=== PATIENT | male | born 1935 | race Caucasian/White ===

== ENCOUNTER 2018-01-07 15:37 | Inpatient (IN) | payer MEDICARE ==
[2018-01-07 16:16] LABS: #Lymphocytes 0.5 thou/uL (1.20-3.40); #Monocytes 0.5 thou/uL (0.11-0.59); #Neutrophils 9.6 thou/uL (1.40-6.50); %Basophils 0.2 % (0.0-1.0); %Eosinophils 0.1 % (0.0-10.0); %Lymphocytes 4.6 % (21.0-51.0); %Neutrophils 90.1 % (42.0-75.0); Mean Corpuscular Hemoglobin 30.5 pg (27.0-31.0); Mean Corpuscular Volume 92.5 fL (78.0-98.0); Mean Platelet Volume 7.6 fL (7.4-10.4); Platelet Count 143 thou/uL (130-400); RBC Distribution Width 12.4 % (11.5-14.5); Red Blood Cell (RBC) Count 4.27 mill/uL (4.70-6.10); White Blood Cell (WBC) Count 10.7 thou/uL (4.8-10.8)
[2018-01-07 16:23] LABS: INR-International Normal Ratio 2.8; PTT 32.9 SEC (22.9-36.1); Prothrombin Time 29.4 SEC (12.0-14.7)
--- NOTE | 2018-01-07 16:38 | RAD ---
PORTABLE AP CHEST X-RAY 01/07/18 HISTORY: Patient fell today while trying to hang a rope. Patient was on the ground for hours. COMPARISON: None available. FINDINGS: The cardiac silhouette and pulmonary vasculature are within normal limits. There is eventration of a portion of the right hemidiaphragm. The lungs are clear. Degenerative changes are seen in the spine. Vascular calcification seen in the thoracic aorta. IMPRESSION: No acute cardiopulmonary process. POS: [facility]
[2018-01-07 16:39] LABS: ALT (SGPT) 16 U/L (8-55); AST (SGOT) 28 U/L (5-34); Albumin 4.1 g/dL (3.4-4.8); Alkaline Phosphatase 49 U/L (40-150); Anion Gap 15 mmol/L (10-20); BUN (Urea Nitrogen) 14 mg/dL (8.4-25.7); CK (CPK) 788 U/L (30-200); Calc. Creatinine Clearance 0 mL/min (70-130); Calcium 8.7 mg/dL (7.8-10.44); Carbon Dioxide 22 mmol/L (23-31); Chloride 107 mmol/L (98-107); Estimated GFR-MDRD 69; Globulin 2.8 g/dL (2.4-3.5); Glucose 124 mg/dL (83-110); Potassium 3.6 mmol/L (3.5-5.1); Protein, Total 6.9 g/dL (5.8-8.1); Sodium 140 mmol/L (136-145)
--- NOTE | 2018-01-07 16:42 | RAD ---
TWO VIEWS LEFT FEMUR: 01/07/18 HISTORY: Patient fell while trying to hang a rope. Left hip pain. FINDINGS: Comparison made with AP view of the pelvis which includes the AP view of the proximal left hip. The upper portion of the femur is obscured on the AP projection. Noted on the view of the pelvis, the re is a comminuted intertrochanteric left hip fracture. No additional fractures seen. There is no dis location seen. Vascular calcifications are seen in the femoral and popliteal as well as visualized ti bioperoneal vessels. No joint space narrowing is seen at the knee. IMPRESSION: Comminuted mildly and displaced left intertrochanteric hip fracture. POS: [facility]
--- NOTE | 2018-01-07 16:49 | RAD ---
AP VIEW PELVIS: 01/07/18 HISTORY: Injury after a fall. Left hip pain. FINDINGS: There is a comminuted intertrochanteric left hip fracture. The distal fracture fragment is slightly d isplaced medially with respect to the proximal fracture fragment by 1.8 cm. There is also mild displa cement of the lesser trochanter fracture fragment. There is mild apex lateral angulation of fracture fragments. No definite additional fracture is seen and there is no dislocation. Degenerative changes are seen in the lower lumbar spine. Vascular calcifications overlie the pelvis. IMPRESSION: Comminuted and mildly displaced and left intertrochanteric hip fracture. POS: [facility]
[2018-01-07] MEDS ORDERED: traMADol HCl 50 MG TAB PO PRN (17:22)
[2018-01-07] MEDS ORDERED: Dextrose 50% Abboject 50 ML SYRINGE SLOW IVP PRN (17:23)
[2018-01-07] MEDS ORDERED: Dextrose 5% in Water 1,000 ML IV PRN (17:23)
[2018-01-07] MEDS ORDERED: Labetalol HCl 100 MG/20 ML VIAL ONE ×2 (17:41→17:42)
[2018-01-07] MEDS ORDERED: Phytonadione 5 MG in Sodium Chloride 0.9% 50 ML IVPB SCH (17:45)
[2018-01-07] MEDS ORDERED: hydrALAZINE 20 MG/ML VIAL SLOW IVP PRN (18:01)
[2018-01-07 18:35] LABS: CKMB 4.5 ng/mL (0-6.6); Troponin I Less than 0.010 ng/mL (< 0.028)
[2018-01-07] MEDS: Acetaminophen 1,000 MG in Premix Bag 1 BAG IVPB SCH (20:17)
[2018-01-07] MEDS: traMADol HCl 50 MG TAB PO SCH (20:17)
[2018-01-07] MEDS: Ketorolac Tromethamine 30 MG/ML VIAL IVP SCH (20:18)
[2018-01-07 20:25] VITALS: BMI 30.4
--- NOTE | 2018-01-07 21:03 | HP ---
DATE OF ADMISSION: 01/07/2018 ATTENDING PHYSICIAN: Dr. Torres. TRAUMA ACTIVATION: Level 2. HISTORY OF PRESENT ILLNESS: This is an 82-year-old male who presented to [facility] v ia EMS status post fall. He was trauma activation secondary to left thigh deformity and suspected lo ng bone fracture. Per patient, he was working in the [employer] trying to offload a piece of equipment u sing a rope, the rope broke and the patient fell landing on his left hip. The patient denies head tr auma or loss of consciousness. He was evaluated in the emergency room and found to have a left subtr ochanteric hip fracture. Of note, the patient does have a history of atrial fibrillation and is on C oumadin. Upon my evaluation, he has a chief complaint of left hip and thigh pain. Orthopedic Surger y was notified and Trauma Services was asked to admit. Additionally, patient stated that he was down for up to 4 hours while attempting to obtain help. ALLERGIES: None. HOME MEDICATIONS: Coumadin, Crestor, metoprolol dose is unknown. PAST MEDICAL HISTORY: Atrial fibrillation and hypertension. PAST SURGICAL HISTORY: Left knee surgery, right arm surgery. SOCIAL HISTORY: Patient lives alone. He currently works as a noonan. He denies alcohol, tobacco or illicit drug use. FAMILY HISTORY: Noncontributory. REVIEW OF SYSTEMS: A 10-point review of systems was obtained and is negative except as indicated in the HPI. PHYSICAL EXAMINATION: VITAL SIGNS: On evaluation, blood pressure 158/111, heart rate 88, respirations 16, O2 sat 98% on ro om air. GENERAL: Elderly appearing male in no acute distress, resting in bed. HEAD: Normocephalic, atraumatic. EYES: Pupils are PERRL. Extraocular movements are intact. NECK: Supple. Trachea is midline. There is no midline tenderness to palpation. CHEST/PULMONARY: Atraumatic and nontender to palpation. Normal work of breathing, symmetric rise. LUNGS: Clear to auscultation bilaterally. CARDIOVASCULAR: Irregularly irregular. No obvious murmurs, rubs or gallops. GASTROINTESTINAL: Atraumatic, soft, nontender, nondistended. Bowel sounds are positive. BACK: Exam is reported as being within normal limits. MUSCULOSKELETAL: Bilateral upper extremities within normal limits. Right lower extremity is within normal limits for patient. Left lower extremity width is shortened and externally rotated. He was i nitially placed in a traction splint by EMS, but that has since been removed by Dr. Valencia. NEUROLOGIC: GCS is 15. No focal deficit is noted. LABORATORY DATA: WBC 10.7, hemoglobin 13.0, hematocrit 39.5 and platelet count 143. INR is 2.8, PT 29.4, aPTT is 32.9. Sodium 140, potassium 3.6, chloride 107, carbon dioxide 22, BUN 14, creatinine 1 .03, glucose 124, calcium 8.7. AST and ALT within normal limits. CK 788. Troponin less than 0.010. IMAGING DATA: EKG with atrial fibrillation, rate controlled and evidence of QTC prolongation. Chest x-ray was without acute cardiopulmonary process. X-ray of the femur showed a left subtrochanteric h ip fracture. X-ray of the pelvis demonstrated the same. ASSESSMENT: 1. Status post mechanical fall. 2. Acute traumatic pain. 3. Left hip fracture. 4. Atrial fibrillation on chronic anticoagulation. 5. Hypertension. PLAN: Administer vitamin K IV in the ER now. Recheck INR in a.m. If INR is greater than 1.6, we wi ll administer FFP at that time. Hospital medicine consult for medical clearance. Perioperative anal gesia with p.o. and IV analgesics. Postoperative PT and OT. The patient should be n.p.o. after midn ight. Gentle IV fluid hydration. DVT and gastritis prophylaxis once appropriate. Plan for admissio n was discussed with the patient and family at bedside. All questions were answered at the time of t his dictation. He is a FULL CODE. The patient has been discussed with trauma attending.
[2018-01-07] MEDS: Senokot S 8.6-50 MG TAB PO SCH (21:50)
[2018-01-07] MEDS: Sodium Chloride 0.9% 1,000 ML IV SCH (21:51)
[2018-01-08] MEDS: traMADol HCl 50 MG TAB PO SCH ×4 (00:22→17:14)
[2018-01-08] MEDS: Ketorolac Tromethamine 30 MG/ML VIAL IVP SCH ×4 (00:26→18:00)
[2018-01-08] MEDS: Acetaminophen 1,000 MG in Premix Bag 1 BAG IVPB SCH ×4 (00:26→18:00)
[2018-01-08 05:45] LABS: INR-International Normal Ratio 1.7; PTT 32.5 SEC (22.9-36.1); Prothrombin Time 19.6 SEC (12.0-14.7)
[2018-01-08 05:59] LABS: Anion Gap 11 mmol/L (10-20); BUN (Urea Nitrogen) 10 mg/dL (8.4-25.7); CK (CPK) 785 U/L (30-200); Calc. Creatinine Clearance 85 mL/min (70-130); Calcium 7.9 mg/dL (7.8-10.44); Carbon Dioxide 23 mmol/L (23-31); Chloride 107 mmol/L (98-107); Estimated GFR-MDRD 86; Glucose 99 mg/dL (83-110); Magnesium 1.7 mg/dL (1.6-2.6); Potassium 3.4 mmol/L (3.5-5.1); Sodium 138 mmol/L (136-145)
[2018-01-08 06:07] LABS: #Lymphocytes 0.7 thou/uL (1.20-3.40); #Monocytes 0.6 thou/uL (0.11-0.59); #Neutrophils 5.2 thou/uL (1.40-6.50); %Basophils 0.1 % (0.0-1.0); %Eosinophils 0.4 % (0.0-10.0); %Lymphocytes 10.8 % (21.0-51.0); %Neutrophils 79.8 % (42.0-75.0); Hemoglobin 10.9 g/dL (14.0-18.0); Mean Corpuscular HGB CONC 33.4 g/dL (32.0-36.0); Mean Corpuscular Hemoglobin 30.9 pg (27.0-31.0); Mean Corpuscular Volume 92.5 fL (78.0-98.0); Mean Platelet Volume 7.5 fL (7.4-10.4); Platelet Count 106 thou/uL (130-400); RBC Distribution Width 12.3 % (11.5-14.5); Red Blood Cell (RBC) Count 3.53 mill/uL (4.70-6.10); White Blood Cell (WBC) Count 6.6 thou/uL (4.8-10.8)
--- NOTE | 2018-01-08 07:30 | CON ---
DATE OF CONSULTATION: 01/08/2018 Consultation for medical management and medical clearance for surgery. CHIEF COMPLAINT: Fall. HISTORY OF PRESENT ILLNESS: This is an 82-year-old male with past medical history of hypertension, a trial fibrillation, hyperlipidemia presenting to our hospital after a fall. Per patient, he fell natali kward after pulling a rope. The patient states that he injured himself, fell on his hip. Per the pa tient, this was a mechanical fall. The patient is currently in pain and nothing seemed to help with the pain when the injury happened. Currently, the patient states that the pain has been a little bet ter due to pain medication that he is taking. REVIEW OF SYSTEMS: Positive for pain in the left hip, otherwise as documented in the HPI. All other systems are reviewed and are negative. PAST MEDICAL HISTORY: Atrial fibrillation, hyperlipidemia, hypertension. PAST SURGICAL HISTORY: Left knee and right arm surgeries. PSYCHIATRIC HISTORY: No psych history. SOCIAL HISTORY: Patient denies alcohol use, denies any drug use. Denies any smoking history. ALLERGIES: No known drug allergies. CURRENT MEDICATIONS: Patient takes Coumadin 5 mg and Metoprolol. PHYSICAL EXAMINATION: VITAL SIGNS: Blood pressure is 205/111, pulse 88, respiratory rate of 22, oxygen saturation is 96% o n room air. On admission, the patient's blood pressure dropped to 151/67, pulse 69, respiratory rate of 17, O2 sat of 98% on room air. GENERAL APPEARANCE: The patient appears stated age. The patient is seen lying in bed comfortably. He is not in acute distress. Patient is speaking in full sentences. HEENT: Normocephalic, atraumatic. Pupils are equally round and reactive to light. Extraocular move ments are intact. No scleral icterus. NECK: No JVD. Trachea is midline. No tracheal deviation. LUNGS: Clear to auscultation bilaterally. No wheezing, no rales, no rhonchi is appreciated. CARDIOVASCULAR: Patient has a positive S1, S2, irregularly irregular heart rate. There is a systoli c murmur appreciated. No gallops. ABDOMEN: The patient has positive bowel sounds in all quadrants, no distention, no tenderness, no ri gidity. EXTREMITIES: The patient has slight tenderness to palpation at the left lower extremity. The patien t has reduced range of motion at the left lower extremity. Right lower extremity, the patient is abl e to move that extremity; however, the patient do have slight edema noted at the left lower extremity . Upper extremity, 5/5 upper extremity strength. Good radial pulses bilaterally. NEUROLOGIC: The patient has good sensation intact at the left lower extremity. Good pulses and the patient is able to wiggle toes bilaterally. Cranial nerves II through XII grossly intact. SKIN: Warm, dry, and intact. PSYCHIATRIC: Alert, oriented x3, normal affect. EKG: Atrial fibrillation noted with a rate of 86. ED COURSE: The patient was given labetalol 10 mg, vitamin K 5 mg, normal saline 1 liter. LABORATORY DATA: The patient's white count was 10.7, hemoglobin 13.0, hematocrit 39.5, PT 29.4, INR is 2.8 and PTT is 32.9. Sodium 140, potassium 3.6, chloride 107, carbon dioxide 22, anion gap 15, cr eatinine is 1.03, glucose 124, calcium is 8.7. Creatine kinase is 788. IMAGING: Femur x-ray showed comminuted mildly and displaced left intertrochanteric hip fra cture. Chest x-ray showed no acute cardiopulmonary process. Pelvic x-ray showed comminuted and mild ly displaced and left intertrochanteric hip fracture. ASSESSMENT AND PLAN: This is an 82-year-old male status post mechanical fall. The patient is now be ing admitted for hip fracture that needs to be operated on. At this point, we have been consulted to medically optimize the patient for surgery. Patient's INR at this point is 2.8. My recommendation is that the patient can be transfused 1 FFP if INR is greater than 1.6. We have documented this in t he patient's chart and we have spoken to nurse regarding this. 1. Hypertension. The patient's blood pressure at this time is 152/82, heart rate is 63, temperature of 98.6. This is the fact that the patient takes metoprolol and patient's blood pressure is optimiz ed at this time. We will continue patient on metoprolol. Also, the patient is medically managed and does not have any extensive cardiac history for us to get Cardiology. We will at this time get car diologist to evaluate the patient's heart since the patient has a history of atrial fibrillation. Ho pefully, laundry operator finishing can be able to clear the patient and the patient can be able to undergo surgery . 2. Deep venous thrombosis and gastrointestinal prophylaxis.
[2018-01-08] MEDS ORDERED: Metoprolol Tartrate 50 MG TAB PO SCH ×2 (08:00→21:00)
[2018-01-08] MEDS ORDERED: Magnesium Sulfate 3 GM, IV Admixture Fee-Chemo 1 UNITS in Sodium Chloride 0.9% 100 ML IVPB SCH (08:45)
[2018-01-08] MEDS: Potassium Chloride 20 MEQ in Premix Bag 1 BAG IVPB SCH ×2 (09:37→11:40)
[2018-01-08] MEDS: Polyethylene Glycol 3350 17 GM Packet PO SCH (09:38)
[2018-01-08] MEDS: Senokot S 8.6-50 MG TAB PO SCH ×2 (09:38→21:53)
[2018-01-08] MEDS: Sodium Chloride 0.9% 1,000 ML IV SCH ×2 (09:39→21:53)
--- NOTE | 2018-01-08 12:33 | CON ---
DATE OF CONSULTATION: 01/07/2018 CHIEF COMPLAINT: Left hip pain. HISTORY OF PRESENT ILLNESS: Mr. Trevizo is an 82-year-old male who was working on his car with a wench it popped and then sent him fall and he fell onto his left hip. The patient was down for about 3-4 hours. He crawled until he was found. He was then brought in. The patient states that he walks about 1-2 miles a day. Never had shortness of breath or chest pain. His pain is currently 2/10. He is resting comfortably in bed with his sister and daughter at bedside. PAST MEDICAL HISTORY: Atrial fibrillation, hypertension. No history of coronary artery disease per report. PAST SURGICAL HISTORY: 1. Right arm ORIF. 2. Left knee laceration with surgical repair. MEDICATIONS: Coumadin, Crestor, and metoprolol. ALLERGIES: No known drug allergies. SOCIAL HISTORY: Nondrinker, nonsmoker, no drug use. Currently, the patient is retired, lives in [facility]. REVIEW OF SYSTEMS: Noncontributory. PHYSICAL EXAMINATION: VITAL SIGNS: 164/110, 94, 27, 98.6, pain 2/10, and saturation 96%. GENERAL: Alert and oriented male in no apparent distress, resting comfortably in bed. EXTREMITIES: Left lower extremity, had traction splint in place, which was removed. The patient has no open wounds. He is neurovascularly intact distally , 2+ DP and PT pulses. He has got a smiley face incision over his distal patella. The patient has pain with internal or external rotation of his left hip. PELVIS: Stable to AP and lateral compression. LABORATORY DATA AND X-RAY FINDINGS: H&H is 13 and 39, platelets 143, INR was 2.8. Creatinine 1.03, glucose 124. The patient's x-ray showed a reverse obliquity left intertrochanteric and subtrochanteric femur fracture. IMPRESSION: 1. Left subtrochanteric femur fracture. 2. Atrial fibrillation. 3. Hypertension. 4. Hypercholesterolemia. ASSESSMENT AND PLAN: The patient will be made n.p.o. His INR will be corrected by Trauma Surgery. The patient will be planned for intramedullary nailing along TNF-a of his left hip. Plan to give him TXA 1 gram, Ancef 2 grams preoperatively. The patient's family understands the risks and benefits of the surgery to include pain, scar, bleeding, infection, damage to vital structures, decreased range of motion or strength, nonunion, malunion, loss of life or limb. I discussed with patient the mortality and significant risk of this event. He understands all this. We will plan on performing surgery tomorrow. [facility]
[2018-01-08 15:20] LABS: INR-International Normal Ratio 1.4; Prothrombin Time 17.3 SEC (12.0-14.7)
[2018-01-08] MEDS ORDERED: Lidocaine 1% PF 5 ML VIAL ONE (16:10)
[2018-01-08] MEDS ORDERED: PROPOFOL 200 MG/20 ML VIAL ONE (16:10)
[2018-01-08] MEDS ORDERED: Ondansetron HCl/PF 4 MG/2 ML Vial ONE (16:10)
--- NOTE | 2018-01-08 17:02 | PDOC.PN ---
- Subjective Encounter Start Date: 01/08/18 Encounter Start Time: 08:00 Pt seen for followup re: hypertension. Denies chest pain, shortness of breath, fevers or chills. - Objective Resuscitation Status: Resuscitation Status FULL:Full Resuscitation MAR Reviewed: Yes Vital Signs & Weight: Vital Signs (12 hours) Temp Pulse Pulse Resp BP BP Pulse Ox 01/08/18 11:59 98.2 F 55 L 16 135/66 94 L 01/08/18 11:33 97.6 F 59 L 22 H 135/67 94 L 01/08/18 09:46 98.5 F 70 16 134/83 95 01/08/18 09:31 98 F 66 16 151/87 H 95 01/08/18 07:50 93 L 01/08/18 07:46 98.0 F 75 16 148/78 H 93 L Weight Weight 194 lb 7 oz I&O: 01/07/18 01/08/18 01/09/18 06:59 06:59 06:59 Intake Total 1000 1470 Output Total 675 350 Balance 325 1120 Result Diagrams: 01/09/18 03:29 01/09/18 03:29 Additional Labs: Labs reviewed by me Phys Exam - Physical Examination Obese HEENT: moist MMs Neck: supple Respiratory: clear to auscultation bilateral Cardiovascular: irregular Gastrointestinal: soft Neurological: moves all 4 limbs Psychiatric: normal affect Dx/Plan (1) HTN (hypertension) Code(s): I10 - ESSENTIAL (PRIMARY) HYPERTENSION Status: Chronic Comment: continue metoprolol. Monitor vital signs, titrate antihypertensives as needed. (2) Dyslipidemia Code(s): E78.5 - HYPERLIPIDEMIA, UNSPECIFIED Status: Chronic Comment: continue statin (3) Afib Code(s): I48.91 - UNSPECIFIED ATRIAL FIBRILLATION Status: Chronic Comment: Pt receiving FFPs to reverse warfarin, received Vit K earlier - Plan * . DVT prophylaxis and pain management per primary service Review of Systems - Review of Systems Respiratory: negative: Cough, Dry, Shortness of Breath, Hemoptysis, SOB with Excertion, Pleuritic Pain, Sputum, Wheezing Cardiovascular: negative: chest pain, palpitations, orthopnea, paroxysmal nocturnal dyspnea, edema, light headedness Musculoskeletal: Other (L hip pain) - Medications/Allergies Allergies/Adverse Reactions: Allergies Allergy/AdvReac Type Severity Reaction Status Date / Time No Known Allergies Allergy Unverified 01/07/18 17:34 Medications: Current Medications Atorvastatin Calcium (Lipitor) 10 mg PO HS [facility] Dextrose/Water (Dextrose 50%) 25 gm SLOW IVP PRN PRN PRN Reason: Hypoglycemia Glucagon (Glucagon) 1 mg IM PRN PRN PRN Reason: Hypoglycemia Hydralazine HCl (Apresoline) 10 mg SLOW IVP Q4H PRN PRN Reason: SBP > 170 or DBP > 100 Acetaminophen 1,000 mg/ Device 100 mls @ 400 mls/hr IVPB Q6HR [facility] Stop: 01/08/18 18:01 Last Admin: 01/08/18 11:41 Dose: 100 mls Dextrose/Water (D5w) 1,000 mls @ 0 mls/hr IV .Q0M PRN PRN Reason: Hypoglycemia Sodium Chloride (Normal Saline 0.9%) 1,000 mls @ 100 mls/hr IV .Q10H [facility] Last Admin: 01/08/18 09:39 Dose: 1,000 mls Ketorolac Tromethamine (Toradol) 15 mg IVP Q6HR [facility] Stop: 01/12/18 18:01 Last Admin: 01/08/18 11:42 Dose: 15 mg Metoprolol Succinate (Toprol Xl) 50 mg PO HS [facility] Morphine Sulfate (Morphine) 2 mg IVP Q4H PRN PRN Reason: severe breakthrough pain Polyethylene Glycol (Miralax) 17 gm PO DAILY [facility] Last Admin: 01/08/18 09:38 Dose: Not Given Senna/Docusate Sodium (Senokot S) 2 tab PO BID [facility] Last Admin: 01/08/18 09:38 Dose: Not Given Sodium Chloride (Flush - Normal Saline) 10 ml IVF PRN PRN PRN Reason: Saline Flush Tramadol HCl (Ultram) 50 mg PO Q6H [facility] Last Admin: 01/08/18 11:42 Dose: 50 mg Tramadol HCl (Ultram) 50 mg PO Q6H PRN PRN Reason: Breakthrough Pain Last Admin: 01/07/18 21:50 Dose: 50 mg
[2018-01-08] MEDS ORDERED: Sodium Chloride 0.9% 100 ML ONE (17:37)
[2018-01-08] MEDS ORDERED: CEFAZOLIN/Water 2 GM/20 ML SYRINGE ONE (17:37)
[2018-01-08] MEDS ORDERED: Fentanyl 100 MCG/2 ML VIAL ONE ×4 (17:53→19:40)
--- NOTE | 2018-01-08 18:06 | PRG ---
DATE OF SERVICE: 01/08/2018 SUBJECTIVE: This is an 82-year-old male status post mechanical fall with resultant left femur fractu re. There were no acute overnight events. The patient has been seen and evaluated by Hospital Medic ine who recommends a cardiac evaluation prior to surgery. Cardiology has been notified. Upon my ava luation this morning, the patient vocalized no complaint. He has also been seen and evaluated by Dr. Torres. OBJECTIVE: VITAL SIGNS: Temperature 98.5, respirations 16, O2 sat 95% on room air, blood pressure 134/83, pulse is 70. GENERAL: Elderly appearing male in no acute distress, resting in bed. PULMONARY: Normal work of breathing. Symmetric rise. CARDIOVASCULAR: Regular rate and rhythm. GASTROINTESTINAL: Abdomen is soft, nontender, nondistended. MUSCULOSKELETAL: Moves all extremities x4. Left lower extremity range of motion limited secondary t o pain. He is neurovascularly intact at the site of injury. NEUROLOGIC: No focal deficit noted. LABORATORY DATA: WBC 6.6, hemoglobin 10.9, hematocrit 32.6, platelet count 106. INR 1.7. Sodium 13 8, potassium 3.4, chloride 107, carbon dioxide 23, BUN 10, creatinine 0.6, glucose 99. CK 785. Echo cardiogram report EF 50%-55%, mild RVE, moderate biatrial enlargement, mild MR, moderate TR. ASSESSMENT: 1. Status post mechanical fall. 2. Left femur fracture. 3. Acute traumatic pain. 4. History of atrial fibrillation. 5. History of hypertension. PLAN: Appreciate Hospital Medicine input. Perioperative pain management as ordered. We will transi tion patient p.o. analgesics once postoperative. Follow up Cardiology recommendations, although I an ticipate there will be no issues with cardiac clearance for surgery later this afternoon. A.m. labs. Postoperative PT and OT. Plan of care was discussed with the patient and family at bedside. All q uestions were answered at the time of this dictation. Patient has been discussed with trauma attendpaul paulino.
[2018-01-08] MEDS ORDERED: Rocuronium Bromide 50 MG/5 ML VIAL ONE (19:21)
--- NOTE | 2018-01-08 20:07 | CON ---
DATE OF CONSULTATION: 01/08/2018 REASON FOR CONSULTATION: Preop clearance and atrial fibrillation. HISTORY OF PRESENT ILLNESS: Mr. Trevizo is an 82-year-old gentleman, who has been seen and evaluated by Dr. Hu Mariee at [facility]. He has no previous history of underlying coronary artery di sease. He states he has been on anticoagulation therapy for atrial fibrillation. He recently fell. Mr. Trevizo is very active. He was outside and broke his leg. He denies chest pain, pressure, shortness of breath or other associated symptoms. He does appear to have appropriate METS. PAST MEDICAL HISTORY: Chronic atrial fibrillation, on anticoagulation therapy; hyperlipidemia; hyper tension. MEDICATIONS: Coumadin and metoprolol. ALLERGIES: None. SOCIAL HISTORY: No current tobacco or alcohol use. REVIEW OF SYSTEMS: Ten-point review of systems is reviewed and as above, otherwise negative. PHYSICAL EXAMINATION: GENERAL: Patient is a pleasant male who is in no acute distress. The patient appears his stated age . VITAL SIGNS: Blood pressure 135/67, pulse ____, temperature 97.6. NEUROLOGIC: The patient is alert and oriented times 3 with no focal neurologic deficits. HEENT: Sclerae without icterus. Mouth has moist mucous membranes with normal pallor. NECK: No JVD. Carotid upstroke brisk. No bruits bilaterally. LUNGS: Clear to auscultation with unlabored respirations. BACK: No scoliosis or kyphosis. CARDIAC: Irregularly irregular. ABDOMEN: Soft, nontender, nondistended. No peritoneal signs present. No hepatosplenomegaly. No ab normal striae. EXTREMITIES: 2+ femoral and 2+ dorsalis pedis pulses. No cyanosis, clubbing, or edema. SKIN: No gross abnormalities. PERTINENT LABORATORY DATA: Hemoglobin 10.9. Creatinine 0.86. Echo Doppler shows normal LVEF. IMPRESSION: 1. Preop clearance. 2. Chronic atrial fibrillation. RECOMMENDATIONS: From a CV standpoint, Mr. Trevizo appears to be a reasonable risk for surgery. He is considered low risk with no current symptoms and appropriate METS. His LVEF is normal. Continue bet a roderick therapy. Stop Coumadin and restart when okay with Surgery. Otherwise, I have no recommend ations.
[2018-01-08] MEDS: Atorvastatin Calcium 10 MG TAB PO SCH (21:53)
--- NOTE | 2018-01-08 23:29 | RAD ---
LEFT FEMUR TWO VIEWS: HISTORY: Intraoperative films. FINDINGS: A compression screw and long-stem intramedullary christina stabilize a subtrochanteric fracture of the femo ral shaft, in good position. IMPRESSION: Open reduction and internal fixation of femur fracture. POS: [facility]
[2018-01-09] MEDS: CEFAZOLIN/Water 2 G/20 ML 2 GM in Premix Bag 1 BAG SLOW IVP SCH ×2 (00:19→09:01)
[2018-01-09] MEDS: Ketorolac Tromethamine 30 MG/ML VIAL IVP SCH ×4 (00:21→18:47)
[2018-01-09] MEDS: traMADol HCl 50 MG TAB PO SCH ×4 (00:21→18:47)
--- NOTE | 2018-01-09 03:28 | OP ---
PREOPERATIVE DIAGNOSIS: Left intertrochanteric-subtrochanteric reverse obliquity fracture. POSTOPERATIVE DIAGNOSIS: Left intertrochanteric-subtrochanteric reverse obliquity fracture. PROCEDURE PERFORMED: Intramedullary nailing of left intertrochanteric- subtrochanteric femur fracture. STAFF: Williams Valencia M.D. COLLEGE SPORTS ASSISTANT: Mykel King PA-C ANESTHESIA: Dr. Eastman, the patient received general endotracheal intubation. ESTIMATED BLOOD LOSS: 100 mL. TOURNIQUET TIME: None. IMPLANTS: Synthes TFNA nail, a 11 x 400 mm 130-degree titanium TFNA, a 105 mm titanium base screw, and a 5-mm locking screw. ANTIBIOTICS: 2 grams, TXA 1 gram. COMPLICATIONS: None. HISTORY OF PRESENT ILLNESS: Mr. Trevizo is an 82-year-old male who fell yesterday working on his winch. The patient had a history of AFib and had his INR corrected with vitamin K and FFP. The patient was planned today for a left hip TFNA, Ancef and TXA preoperatively. I discussed with the patient's family risks and benefits of surgery, pain, scar, bleeding, infection, damage to vital structures, nonunion, malunion, decreased range of motion and strength, need for further surgeries, failure of procedure, continued pain, despite surgical intervention. The patient understood the risks and benefits of procedure and he elected to proceed. PROCEDURE IN DETAIL: Timeout was performed designating the patient's left lower extremity as the operative site based on site, consents, and markings. After completion of timeout, the patient's left lower extremity was prepped and draped in sterile fashion. The patient was in fracture table with fracture reduced in traction he had a little bit of varus deformity and a little bit of apex anterior deformity probably from rotation of the reverse obliquity fracture. Therefore, I placed a stab incision superiorly and anterior to the fracture fragment. I used a thick sticker and a large Helen to push the fracture fragment into position, while we placed our initial guide pin, placed an oblique incision down through IT band down the abductors. We placed 1 pin, had to replace it little more anteriorly. I liked the overall alignment of the pin placement. We then used our opening reamer, passed our guidewire. We measured for a 400-mm nail. We reamed starting at 10 up to 12 and passed the 11 -mm nail with reducing the fragment. We then looked AP and lateral radiographs , placed our center-center screw in the head. We made sure we reduced and kept the reduction of the fragment and we drilled and passed across the head and passed a 105 mm screw, had good firm fixation and maintained it. There was maybe 3 mm step off anterior, which could be felt, but otherwise, the patient had good bony apposition and good alignment with the calcar. We tapped just gently to help to compress the bone down. We then placed a single screw in the top 1-2 mm to allow 400 mm of compression at the dynamic screw. We then washed all the wounds. We closed with 0, 2-0, and rob. The patient will be weightbearing as tolerated. He will be admitted back to Trauma, receive postoperative antibiotics for 24 hours. The patient may restart his Coumadin in the morning. He likely need discharge to senior living facility rehab. AGUSTO
[2018-01-09 04:16] LABS: #Lymphocytes 0.4 thou/uL (1.20-3.40); #Monocytes 0.2 thou/uL (0.11-0.59); %Eosinophils 0.3 % (0.0-10.0); %Lymphocytes 4.5 % (21.0-51.0); %Monocytes 2.8 % (0.0-10.0); %Neutrophils 92.4 % (42.0-75.0); Hemoglobin 9.6 g/dL (14.0-18.0); Mean Corpuscular HGB CONC 33.2 g/dL (32.0-36.0); Mean Corpuscular Volume 93.6 fL (78.0-98.0); Platelet Count 111 thou/uL (130-400); RBC Distribution Width 12.2 % (11.5-14.5); Red Blood Cell (RBC) Count 3.08 mill/uL (4.70-6.10); White Blood Cell (WBC) Count 8.6 thou/uL (4.8-10.8)
[2018-01-09 04:39] LABS: Anion Gap 14 mmol/L (10-20); BUN (Urea Nitrogen) 13 mg/dL (8.4-25.7); Calc. Creatinine Clearance 83 mL/min (70-130); Calcium 8.1 mg/dL (7.8-10.44); Carbon Dioxide 21 mmol/L (23-31); Chloride 105 mmol/L (98-107); Estimated GFR-MDRD 82; Glucose 123 mg/dL (83-110); Magnesium 2.2 mg/dL (1.6-2.6); Phosphorus 3.1 mg/dL (2.3-4.7); Potassium 4.1 mmol/L (3.5-5.1); Sodium 136 mmol/L (136-145)
[2018-01-09] MEDS: Sodium Chloride 0.9% 1,000 ML IV SCH ×3 (05:12→20:55)
--- NOTE | 2018-01-09 07:20 | PDOC.CTH ---
Cardiology Progress Note - Subjective Did well during surgery. NO current complaints - Objective Vital Signs Temp Pulse Resp BP Pulse Ox 01/09/18 04:00 97.9 F 61 18 113/68 92 L 01/09/18 00:26 97.8 F 71 18 101/64 92 L 01/08/18 21:05 98.4 F 79 18 137/86 94 L Weight 194 lb 7 oz 01/08/18 01/09/18 01/10/18 06:59 06:59 06:59 Intake Total 1000 2750 Output Total 675 775 Balance 325 1974 - Physical Examination General/Neuro: alert & oriented x3, NAD Neck: carotid US brisk, no JVD present Lungs: CTA, unlabored respirations Heart: other: (irr) Abdomen: no HSM, NT/ND, soft Extremities: + femoral B - Labs Result Diagrams: 01/09/18 03:29 01/09/18 03:29 Troponin/CKMB CK-MB (CK-2) 4.5 ng/mL (0-6.6) 01/07/18 16:09 Troponin I Less than 0.010 ng/mL (< 0.028) 01/07/18 16:09 - Assessment/Plan Afib Recent leg surgery Pt doing well Rate controlled Restart ACT when ok with ortho Recommend fu with lost charge card clerk at in 2-3 weeks after discharge
[2018-01-09] MEDS: Polyethylene Glycol 3350 17 GM Packet PO SCH (09:00)
[2018-01-09] MEDS: Senokot S 8.6-50 MG TAB PO SCH ×2 (09:00→20:42)
--- NOTE | 2018-01-09 12:07 | PDOC.PN ---
- Subjective Encounter Start Date: 01/09/18 Encounter Start Time: 08:20 Pt seen for followup re; hypertension. Denies chest pain, shortness fo breath, fevers or chills. - Objective Resuscitation Status: Resuscitation Status FULL:Full Resuscitation MAR Reviewed: Yes Vital Signs & Weight: Vital Signs (12 hours) Temp Pulse Pulse Pulse Resp BP BP 01/09/18 11:05 98.0 F 92 18 01/09/18 08:27 66 70 117/62 112/66 01/09/18 07:32 98.4 F 59 L 20 01/09/18 04:00 97.9 F 61 18 01/09/18 00:26 97.8 F 71 18 BP Pulse Ox 01/09/18 11:05 112/66 92 L 01/09/18 08:27 01/09/18 07:32 104/64 96 01/09/18 04:00 113/68 92 L 01/09/18 00:26 101/64 92 L Weight Weight 194 lb 7 oz I&O: 01/08/18 01/09/18 01/10/18 06:59 06:59 06:59 Intake Total 1000 2750 Output Total 675 775 Balance 325 1975 Result Diagrams: 01/09/18 03:29 01/09/18 03:29 Additional Labs: Labs reviewed by me Phys Exam - Physical Examination Constitutional: NAD HEENT: moist MMs Neck: supple Cardiovascular: irregular s/p L hip surgery Neurological: moves all 4 limbs Psychiatric: normal affect Dx/Plan (1) HTN (hypertension) Code(s): I10 - ESSENTIAL (PRIMARY) HYPERTENSION Status: Chronic Comment: controlled (2) Dyslipidemia Code(s): E78.5 - HYPERLIPIDEMIA, UNSPECIFIED Status: Chronic Comment: on statin (3) Afib Code(s): I48.91 - UNSPECIFIED ATRIAL FIBRILLATION Status: Chronic Comment: resumption of anticoagulation per primary team - Plan * . Review of Systems - Review of Systems Constitutional: negative: fever, chills, sweats, weakness, malaise Cardiovascular: negative: chest pain, palpitations, orthopnea, paroxysmal nocturnal dyspnea, edema, light headedness - Medications/Allergies Allergies/Adverse Reactions: Allergies Allergy/AdvReac Type Severity Reaction Status Date / Time No Known Allergies Allergy Unverified 01/07/18 17:34 Medications: Current Medications Atorvastatin Calcium (Lipitor) 10 mg PO HS [facility] Last Admin: 01/08/18 21:53 Dose: 10 mg Dextrose/Water (Dextrose 50%) 25 gm SLOW IVP PRN PRN PRN Reason: Hypoglycemia Glucagon (Glucagon) 1 mg IM PRN PRN PRN Reason: Hypoglycemia Hydralazine HCl (Apresoline) 10 mg SLOW IVP Q4H PRN PRN Reason: SBP > 170 or DBP > 100 Dextrose/Water (D5w) 1,000 mls @ 0 mls/hr IV .Q0M PRN PRN Reason: Hypoglycemia Sodium Chloride (Normal Saline 0.9%) 1,000 mls @ 100 mls/hr IV .Q10H [facility] Last Admin: 01/09/18 05:12 Dose: 1,000 mls Ketorolac Tromethamine (Toradol) 15 mg IVP Q6HR [facility] Stop: 01/12/18 18:01 Last Admin: 01/09/18 11:46 Dose: 15 mg Metoprolol Succinate (Toprol Xl) 50 mg PO [facility] Last Admin: 01/08/18 21:53 Dose: 50 mg Morphine Sulfate (Morphine) 2 mg IVP Q4H PRN PRN Reason: severe breakthrough pain Last Admin: 01/08/18 21:54 Dose: 2 mg Polyethylene Glycol (Miralax) 17 gm PO DAILY [facility] Last Admin: 01/09/18 09:00 Dose: Not Given Senna/Docusate Sodium (Senokot S) 2 tab PO BID [facility] Last Admin: 01/09/18 09:00 Dose: Not Given Sodium Chloride (Flush - Normal Saline) 10 ml IVF PRN PRN PRN Reason: Saline Flush Tramadol HCl (Ultram) 50 mg PO Q6H [facility] Last Admin: 01/09/18 11:46 Dose: 50 mg Tramadol HCl (Ultram) 50 mg PO Q6H PRN PRN Reason: Breakthrough Pain Last Admin: 01/07/18 21:50 Dose: 50 mg
--- NOTE | 2018-01-09 12:12 | PRG-2 ---
DATE OF SERVICE: 01/09/2018 SUBJECTIVE: This is an 82-year-old male status post mechanical fall with resultant left femur fracture. The patient is postop day #1 status post intramedullary nailing of the intertrochanteric/subtrochanteric femur fracture with Dr. Valencia yesterday evening. Prior to surgery, the patient was seen and evaluated by Cardiology, Dr. Chad Busch, who cleared the patient for surgery as was recommended by the hospital team. There were no acute events overnight. On evaluation this morning, the patient stated his pain has been decently controlled, otherwise had no complaints. PHYSICAL EXAMINATION: VITAL SIGNS: Temperature 98.4 degrees Fahrenheit, pulse 59, respirations 20, O2 sat 96% on room air, blood pressure 104/64. GENERAL: Elderly appearing male in no acute distress, resting in bed. PULMONARY: Normal work of breathing. Symmetric chest rise. CARDIOVASCULAR: Regular rate and rhythm. GASTROINTESTINAL: Abdomen is soft, nontender, nondistended. MUSCULOSKELETAL: Patient has movement in all 4 extremities. Decreased range of motion in the left lower extremity secondary to pain. However, the patient is neurovascularly intact and below the site of injury. NEUROLOGIC: No focal deficits noted. LABORATORY DATA: White blood cell count is 8.6, hemoglobin 9.6, hematocrit 28.8 , platelet count 111. Sodium 136, potassium 4.1, chloride 105, carbon dioxide 21, BUN 13, creatinine 0.89, glucose 123. RADIOLOGIC FINDINGS: No new imaging for review. ASSESSMENT: 1. Status post mechanical fall. 2. Left finger fracture. 3. Acute traumatic pain. 4. History of atrial fibrillation. 5. History of hypertension. PLAN: Hospital Medicine on board. Appreciate recommendations. Cardiology has signed off with recommendation for followup with the patient's head usher at [facility] within 2-3 weeks following discharge. We will continue postoperative PT and OT. Case management to see today regarding inpatient rehabilitation placement. This plan was discussed with the patient this morning. He is agreeable to going to rehab and understands the benefits of this. We will attempt to transition to p.o. pain control regimen as tolerated by the patient. The patient has been discussed with trauma attending and Physician Grocery Carrier. AGUSTO
[2018-01-09] MEDS: Atorvastatin Calcium 10 MG TAB PO SCH (20:42)
[2018-01-10] MEDS: Ketorolac Tromethamine 30 MG/ML VIAL IVP SCH ×2 (00:11→05:26)
[2018-01-10] MEDS: traMADol HCl 50 MG TAB PO SCH ×3 (00:12→11:28)
[2018-01-10] MEDS ORDERED: Ibuprofen 600 MG TAB PO SCH (08:00)
[2018-01-10] MEDS: Acetaminophen 500 MG TAB PO SCH ×2 (09:14→14:10)
[2018-01-10] MEDS: Senokot S 8.6-50 MG TAB PO SCH (09:14)
[2018-01-10] MEDS: Polyethylene Glycol 3350 17 GM Packet PO SCH (09:15)
--- NOTE | 2018-01-10 10:29 | PQF ---
CLINICAL DOCUMENTATION IMPROVEMENT CLARIFICATION FORM: ICD-10 Updated PLEASE DO AN ADDENDUM TO THE PROGRESS NOTE WITH ANY DOCUMENTATION UPDATES OR ADDITIONS AND CARRY THROUGH TO DC SUMMARY. THANK YOU. DATE: 01/10 ATTN: DR. BRENDA ECHAVARRIA Please exercise your independent, professional judgment in responding to the clarification form. Clinical indicators are provided on the bottom of this form for your review. Please check appropriate box(s): [ ] RHABDOMYOLYSIS, TRAUMATIC [ ] RHABDOMYOLYSIS, NON-TRAUMATIC [ ] Other diagnosis [ ] Unable to determine For continuity of documentation, please document condition throughout progress notes and discharge summary. Thank You. CLINICAL INDICATORS - SIGNS / SYMPTOMS/ LABS are present in the medical record: CREATINE KINASE: 788 (ON ADMIT, 01/07) 785 (01/08) ER PHYSICIAN DOCUMENTATION 01/07: PATIENT PRESENTS S/P FALL AND STATES HE WAS ON THE GROUND FOR 4 HOURS ORTHOPEDIC CONSULT DOCUMENTATION 01/07: 82-YEAR-OLD MALE S/P FALL. THE PATIENT WAS DOWN FOR ABOUT 3-4 HOURS. HE CRAWLED UNTIL HE WAS FOUND. H&P DOCUMENTATION 01/07: THE PATIENT FELL LANDING ON HIS L HIP. ADDITIONALLY, THE PATIENT STATED THAT HE WAS DOWN FOR UP TO 4 HOURS WHILE ATTEMPTING TO OBTAIN HELP. RISK FACTORS: STATUS POST FALL & BEING ON GROUND FOR UP TO 4 HOURS L HIP FRACTURE TREATMENT: SERIAL BASMET LAB W/CREATINE KINASE (01/07 & ) IVF (NS 01/07 - ) THANK YOU! Bridgette (This form is maintained as a part of the permanent medical record) 2014 [employer] All Rights Reserved Bridgette Phelps RN, BSN [email or web address] Office: [phone] [facility]
[2018-01-10] MEDS ORDERED: Warfarin Sodium 5 MG TAB PO SCH (10:45)
[2018-01-10] MEDS ORDERED: Enoxaparin Sodium 40 MG/0.4 ML SYRINGE SC SCH (11:00)
[2018-01-10 11:38] VITALS: BP 132/73; TEMP 97.5
[2018-01-10] MEDS ORDERED: Prevnar 13-Val Conj/PF 0.5 ML SYRINGE IM ONE (11:45)
[2018-01-10] MEDS ORDERED: Glycerin Adult Supp. (12 ct jar) PR SCH (12:30)
--- NOTE | 2018-01-10 14:27 | PRG-2 ---
DATE OF SERVICE: 01/10/2018 SUBJECTIVE: This is an 82-year-old male status post mechanical fall with resultant left femur fracture. Patient is postop day #2 status post intramedullary nailing of the intertrochanteric/subtrochanteric femur fracture with Dr. Valencia. There were no acute events overnight. On evaluation this morning, the patient states his pain has been well controlled; however, he has yet to have a bowel movement. Patient does endorse passing gas this morning. States he is doing well. OBJECTIVE: VITAL SIGNS: Temperature 98.3 degrees Fahrenheit, pulse 72, respirations 19, O2 sat 95% on room air, and blood pressure 108/68. GENERAL: Elderly appearing male in no acute distress, resting in bed. PULMONARY: Normal work of breathing. Symmetric chest rise. CARDIOVASCULAR: Regular rate and rhythm, no murmurs. ABDOMEN: Soft, nontender, nondistended. MUSCULOSKELETAL: The patient has movement in all 4 extremities. He has some lower extremity swelling in left extremity; however, it is nonpitting and neurovasculature is intact below the site of injury. NEUROLOGIC: No focal deficits noted. LABORATORY DATA: No new laboratory data to review. RADIOGRAPHIC FINDINGS: No new radiographic findings to review. ASSESSMENT: 1. Status post mechanical fall. 2. Left finger fracture. 3. Acute traumatic pain. 4. Left femur fracture, status post repair. 5. History of atrial fibrillation. 6. History of hypertension. PLAN: Hospital Medicine on board, appreciate recommendations. The patient is stable and has been cleared for discharge to inpatient rehabilitation. However , patient has yet to have a bowel movement. We will add lactulose to regular scheduled bowel regimen today. We will discharge upon inducing a bowel movement with recommendations to follow up with orthopedist, Dr. Valencia within 2 weeks of discharge as well as his primary care physician, Dr. Carlos Bello.We will also resume the patient's home dose of Coumadin for chronic anticoagulation for his atrial fibrillation. The patient has been discussed with trauma attending. AGUSTO
[2018-01-10] MEDS ORDERED: Warfarin Sodium 2.5 MG TAB PO SCH (17:00)
--- NOTE | 2018-01-11 04:50 | DIS ---
DATE OF ADMISSION: 01/07/2018 DATE OF DISCHARGE: 01/10/2018 ADMISSION DIAGNOSES: 1. Status post mechanical fall. 2. Left subtrochanteric hip fracture. 3. Acute traumatic pain. 4. Atrial fibrillation on chronic anticoagulation. 5. Hypertension. DISCHARGE DIAGNOSES: 1. Status post mechanical fall. 2. Left subtrochanteric hip fracture. 3. Acute traumatic pain. 4. Atrial fibrillation on chronic anticoagulation. 5. Hypertension. CONSULTANTS: Dr. Busch, Cardiology; [facility]; and Dr. Valencia, Orthopedic Surge ry. PROCEDURES: On 01/08/2018, intramedullary nailing of intertrochanteric subtrochanteric femur fractur e. HOSPITAL COURSE: Carlos Trevizo is an 82-year-old male who presented to [place] [facility] status post fall resulting in a left femur fracture. The patient was down for approximately 4 hours, but was ab le to crawl on the ground to obtain help. Upon arrival, he was evaluated in the emergency room and f ound to have the above injuries. He did have a mildly elevated CK, but his creatinine remained stabl e throughout the duration of his hospitalization and his CK did not rise further. He was cleared by Cardiology and Hospital Medicine for surgery and was taken to the operating room for intervention to his injury on 01/08/2018. Postoperatively, the patient did well. He was mobilizing with physical th erapy and tolerating a general diet. He was seen and evaluated by inpatient rehabilitation and felt to be a good candidate. On 01/10/2018, he was medically stable for discharge. DISCHARGE DISPOSITION: Inpatient rehabilitation. DISCHARGE CONDITION: Good. PHYSICAL EXAMINATION: As documented in daily progress note dated 01/10/2018. DISCHARGE MEDICATIONS: Discharge medications were as documented in the electronic medical record, a list of which was provided to his accepting facility. He has been restarted on his home Coumadin. T his does need to be monitored with appropriate followup per medical provider's discretion at [facility]. FOLLOWUP APPOINTMENTS: The patient should follow up with his primary care provider for hypertension and atrial fibrillation as well as his primary care coordinator. He does not need to follow up Trauma Serv ices, but may call our office with any questions. [facility] This is merely a summary of the patient's hospitalization. For more in depth information, please see his medical record in its entirety.
[2018-01-11] MEDS ORDERED: Glycerin Adult Supp. (12 ct jar) PR SCH (09:00)
[2018-01-11] MEDS ORDERED: Enoxaparin Sodium 40 MG/0.4 ML SYRINGE SC SCH (09:00)
[2018-01-11] MEDS ORDERED: Warfarin Sodium 5 MG TAB PO SCH (17:00)
== END 2018-01-10 14:46 | DRG 482 ==
LOC: ERS 15:37 → SURG A 19:59
PROVIDERS: ADMIT Surgery; ATTEND Surgery
PROC: 30233K1 Transfusion of Nonautologous Frozen Plasma into Peripheral Vein, Percutaneous Approach (ICD-10-PCS; 2018-01-08)
PROC: 0QS706Z Reposition Left Upper Femur with Intramedullary Internal Fixation Device, Open Approach (ICD-10-PCS; principal; 2018-01-09)
DX: S72.22XA Displaced subtrochanteric fracture of left femur, initial encounter for closed fracture (principal); S72.142A Displaced intertrochanteric fracture of left femur, initial encounter for closed fracture; W19.XXXA Unspecified fall, initial encounter; Y92.9 Unspecified place or not applicable; I10 Essential (primary) hypertension; E78.5 Hyperlipidemia, unspecified; I48.2 Chronic atrial fibrillation; Z79.01 Long term (current) use of anticoagulants
CPT/HCPCS: 36415; 36430; 71045; 72170; 76001; 80048; 80053; 82550; 82553; 83735; 84100; 84484; 85025; 85610; 85730; 86850; 86900; 86901; 93005; 93306; 96361; 96365; 96375; C1713; C1769; G0390; G8978-GP-CL; G8979-GP-CI; G8987-GO-CJ; G8988-GO-CI; J0131; J1650; J1885; J2001; J2270; J2405; J2704; J3010; J3430; J3475; J3480; J7050; P9059

== ENCOUNTER 2021-08-11 02:20 | Inpatient (IN) | payer MEDICARE, MEDICAID ==
[2021-08-11 04:09] LABS: Anion Gap 15 mmol/L (10-20); BUN (Urea Nitrogen) 19 mg/dL (8.4-25.7); Calc. Creatinine Clearance 0 mL/min (70-130); Calcium 8.9 mg/dL (7.8-10.44); Carbon Dioxide 21 mmol/L (23-31); Chloride 105 mmol/L (98-107); Glucose 131 mg/dL (83-110); Potassium 4.8 mmol/L (3.5-5.1); Sodium 136 mmol/L (136-145)
[2021-08-11 04:10] LABS: INR-International Normal Ratio 1.2; Prothrombin Time 14.9 sec (12.0-14.7)
[2021-08-11 04:14] LABS: Bilirubin Unable to Interpret (Negative); Blood, Urine Unable to Interpret (Negative); Clarity Bloody (Clear); Glucose, Urine (Dipstick) Unable to Interpret mg/dL (Negative); Ketone, Urine Unable to Interpret mg/dL (Negative); Leukocyte Unable to Interpret Leu/uL (Negative); Nitrite Unable to Interpret (Negative); Protein, Urine (Dipstick) Unable to Interpret mg/dL (Neg-Trace); Specific Gravity, Urine 1.014 (1.002-1.036); Urobilinogen UNABLE TO INTERPRET mg/dL (Less than 2)
[2021-08-11 04:18] LABS: RBC/HPF Greater than 50 HPF (0-3); Squamous Epithelial None Seen HPF (0-3); WBC/HPF Greater than 50 HPF (0-3)
[2021-08-11 04:20] LABS: Bacteria/HPF Rare-Few HPF (None Seen); pH, Urine 6.5 (5.0-9.0)
[2021-08-11] MEDS ORDERED: Acetaminophen 325 MG TAB PO PRN (10:55)
[2021-08-11] MEDS ORDERED: Ondansetron ODT 4 MG TAB PO PRN (10:56)
[2021-08-11] MEDS ORDERED: Ondansetron PF 4 MG/2 ML Vial IVP PRN (10:56)
[2021-08-11 11:01] VITALS: BMI 32.6
[2021-08-11 15:37] LABS: Band 12 % (5-11); Hemoglobin 9.8 g/dL (14.0-18.0); Lymphocytes 2 % (21-51); MDiff Complete? YES; Mean Corpuscular HGB CONC 32.6 g/dL (32.0-36.0); Mean Corpuscular Hemoglobin 31.9 pg (27.0-31.0); Mean Platelet Volume 6.6 fL (7.4-10.4); Monocytes 4 % (0-10); Neutrophil 82 % (42-75); Ovalocytes SLIGHT = 2-5 cells (100X) (0-1/hpf); Platelet Count 167 thou/uL (130-400); Platelet Morphology Comment Appears Adequate; Polychromasia SLIGHT = 2-3 cells (100X) (0-2/hpf); RBC Distribution Width 15.3 % (11.5-14.5); Red Blood Cell (RBC) Count 3.06 mill/uL (4.70-6.10); Stomatocytes SLIGHT = 2-5 cells (100X) (0-1/hpf); White Blood Cell (WBC) Count 14.7 thou/uL (4.8-10.8)
[2021-08-11] MEDS ORDERED: cefTRIAXone\\ROCEPHIN 1 GM in Sodium Chloride 0.9% 100 ML IVPB SCH (16:00)
[2021-08-11] MEDS: Atorvastatin Calcium 10 MG TAB PO SCH (20:21)
[2021-08-11] MEDS: Metoprolol Tartrate 25 MG TAB PO SCH (20:21)
[2021-08-11] MEDS: Tamsulosin HCl 0.4 MG CAP PO SCH (20:21)
[2021-08-11] MEDS: Senokot S 8.6-50 MG TAB PO SCH (20:21)
[2021-08-11] MEDS: Sodium Chloride 0.9% 1,000 ML IV SCH (20:33)
[2021-08-11 21:15] LABS: SARS-CoV-2 PCR by NAA Not Detected (NotDetected)
[2021-08-11 22:53] LABS: ALT (SGPT) 10 U/L (8-55); AST (SGOT) 17 U/L (5-34); Albumin 3.6 g/dL (3.4-4.8); Alkaline Phosphatase 54 U/L (40-110); Bilirubin, Direct 0.4 mg/dL (0.1-0.3); Bilirubin, Total 0.7 mg/dL (0.2-1.2); Protein, Total 6.6 g/dL (5.8-8.1)
[2021-08-12] MEDS: Acetaminophen 325 MG TAB PO PRN (00:13)
[2021-08-12] MEDS ORDERED: Meropenem 1 GM in Sodium Chloride 0.9% 100 ML IVPB SCH ×3 (00:30→23:44)
[2021-08-12] MEDS: Finasteride 5 MG TAB PO SCH (08:12)
[2021-08-12] MEDS: Sodium Chloride 0.9% 1,000 ML IV SCH (08:12)
[2021-08-12] MEDS: Polyethylene Glycol 3350 17 GM Packet PO SCH (08:12)
[2021-08-12] MEDS: Potassium Chloride 20 MEQ TAB PO SCH (08:12)
[2021-08-12] MEDS: Furosemide 20 MG TAB PO SCH (08:12)
[2021-08-12] MEDS: Senokot S 8.6-50 MG TAB PO SCH ×2 (08:13→20:13)
[2021-08-12 08:29] LABS: Anion Gap 10 mmol/L (10-20); BUN (Urea Nitrogen) 16 mg/dL (8.4-25.7); Calc. Creatinine Clearance 62 mL/min (70-130); Carbon Dioxide 23 mmol/L (23-31); Chloride 103 mmol/L (98-107); Glucose 102 mg/dL (83-110); Potassium 4.1 mmol/L (3.5-5.1); Sodium 132 mmol/L (136-145)
[2021-08-12 08:31] LABS: #Eosinphils 0.1 thou/uL (0.0-0.7); #Lymphocytes 0.6 thou/uL (1.20-3.40); #Neutrophils 11.8 thou/uL (1.40-6.50); %Basophils 0.1 % (0.0-1.0); %Eosinophils 0.4 % (0.0-10.0); %Lymphocytes 4.3 % (21.0-51.0); %Monocytes 7.2 % (0.0-10.0); Hemoglobin 8.6 g/dL (14.0-18.0); Mean Corpuscular HGB CONC 32.5 g/dL (32.0-36.0); Mean Corpuscular Hemoglobin 32.1 pg (27.0-31.0); Mean Corpuscular Volume 98.9 fL (78.0-98.0); Mean Platelet Volume 6.6 fL (7.4-10.4); Platelet Count 129 thou/uL (130-400); RBC Distribution Width 15.1 % (11.5-14.5); Red Blood Cell (RBC) Count 2.68 mill/uL (4.70-6.10); White Blood Cell (WBC) Count 13.4 thou/uL (4.8-10.8)
[2021-08-12] MEDS: Metoprolol Tartrate 25 MG TAB PO SCH ×2 (10:03→20:15)
[2021-08-12] MEDS: Meropenem 1 GM in Sodium Chloride 0.9% 100 ML IVPB SCH (18:04)
[2021-08-12] MEDS ORDERED: Sodium Chloride 0.9% 1,000 ML IV SCH (18:44)
[2021-08-12] MEDS: Atorvastatin Calcium 10 MG TAB PO SCH (20:13)
[2021-08-12] MEDS: Tamsulosin HCl 0.4 MG CAP PO SCH (20:13)
[2021-08-12] MEDS ORDERED: Vancomycin 1 GM in Premix Bag 1 BAG IVPB SCH (23:43)
[2021-08-13] MEDS: Acetaminophen 325 MG TAB PO PRN (00:21)
[2021-08-13] MEDS: Meropenem 1 GM in Sodium Chloride 0.9% 100 ML IVPB SCH (01:00)
[2021-08-13] MEDS ORDERED: Vancomycin HCl 1.5 GM in Sodium Chloride 0.9% 250 ML 300 ML IVPB SCH (03:00)
[2021-08-13 06:49] LABS: #Eosinphils 0.2 thou/uL (0.0-0.7); #Lymphocytes 0.8 thou/uL (1.20-3.40); #Monocytes 0.7 thou/uL (0.11-0.59); #Neutrophils 7.4 thou/uL (1.40-6.50); %Basophils 0.2 % (0.0-1.0); %Eosinophils 1.9 % (0.0-10.0); %Lymphocytes 8.9 % (21.0-51.0); %Monocytes 7.6 % (0.0-10.0); %Neutrophils 81.4 % (42.0-75.0); Hemoglobin 8.5 g/dL (14.0-18.0); Mean Corpuscular HGB CONC 33.1 g/dL (32.0-36.0); Mean Corpuscular Hemoglobin 32.4 pg (27.0-31.0); Mean Platelet Volume 6.6 fL (7.4-10.4); Platelet Count 137 thou/uL (130-400); RBC Distribution Width 14.6 % (11.5-14.5); Red Blood Cell (RBC) Count 2.62 mill/uL (4.70-6.10); White Blood Cell (WBC) Count 9.1 thou/uL (4.8-10.8)
[2021-08-13 07:01] LABS: Anion Gap 14 mmol/L (10-20); BUN (Urea Nitrogen) 18 mg/dL (8.4-25.7); Calc. Creatinine Clearance 66 mL/min (70-130); Carbon Dioxide 20 mmol/L (23-31); Chloride 107 mmol/L (98-107); Glucose 95 mg/dL (83-110); Potassium 4.2 mmol/L (3.5-5.1); Sodium 137 mmol/L (136-145)
[2021-08-13] MEDS ORDERED: Ciprofloxacin 500 MG TAB PO SCH (07:45)
[2021-08-13] MEDS: Finasteride 5 MG TAB PO SCH (08:27)
[2021-08-13] MEDS: Potassium Chloride 20 MEQ TAB PO SCH (08:27)
[2021-08-13] MEDS: Furosemide 20 MG TAB PO SCH (08:27)
[2021-08-13] MEDS: Metoprolol Tartrate 25 MG TAB PO SCH ×2 (08:28→20:20)
[2021-08-13] MEDS: Senokot S 8.6-50 MG TAB PO SCH ×2 (08:28→20:19)
[2021-08-13] MEDS: Polyethylene Glycol 3350 17 GM Packet PO SCH (08:28)
[2021-08-13] MEDS: Atorvastatin Calcium 10 MG TAB PO SCH (20:19)
[2021-08-13] MEDS: Tamsulosin HCl 0.4 MG CAP PO SCH (20:19)
[2021-08-13] MEDS: Ciprofloxacin 500 MG TAB PO SCH (20:19)
[2021-08-14] MEDS: Ciprofloxacin 500 MG TAB PO SCH (05:36)
[2021-08-14 06:32] LABS: #Eosinphils 0.3 thou/uL (0.0-0.7); #Lymphocytes 0.8 thou/uL (1.20-3.40); #Monocytes 0.5 thou/uL (0.11-0.59); %Basophils 0.2 % (0.0-1.0); %Eosinophils 4.2 % (0.0-10.0); %Lymphocytes 11.9 % (21.0-51.0); %Monocytes 7.5 % (0.0-10.0); %Neutrophils 76.2 % (42.0-75.0); Hemoglobin 8.6 g/dL (14.0-18.0); Mean Corpuscular HGB CONC 32.6 g/dL (32.0-36.0); Mean Corpuscular Hemoglobin 32.1 pg (27.0-31.0); Mean Corpuscular Volume 98.4 fL (78.0-98.0); Platelet Count 157 thou/uL (130-400); RBC Distribution Width 14.6 % (11.5-14.5); Red Blood Cell (RBC) Count 2.67 mill/uL (4.70-6.10); White Blood Cell (WBC) Count 6.6 thou/uL (4.8-10.8)
[2021-08-14 06:47] LABS: Anion Gap 13 mmol/L (10-20); BUN (Urea Nitrogen) 14 mg/dL (8.4-25.7); Calc. Creatinine Clearance 74 mL/min (70-130); Calcium 8.2 mg/dL (7.8-10.44); Carbon Dioxide 21 mmol/L (23-31); Chloride 103 mmol/L (98-107); Glucose 93 mg/dL (83-110); Potassium 3.8 mmol/L (3.5-5.1); Sodium 133 mmol/L (136-145)
[2021-08-14] MEDS: Senokot S 8.6-50 MG TAB PO SCH (09:51)
[2021-08-14] MEDS: Finasteride 5 MG TAB PO SCH (09:51)
[2021-08-14] MEDS: Furosemide 20 MG TAB PO SCH ×2 (09:51→10:02)
[2021-08-14] MEDS: Metoprolol Tartrate 25 MG TAB PO SCH ×2 (09:51→10:03)
[2021-08-14] MEDS: Potassium Chloride 20 MEQ TAB PO SCH (09:51)
[2021-08-14] MEDS: Polyethylene Glycol 3350 17 GM Packet PO SCH (09:52)
[2021-08-14 12:40] VITALS: TEMP 97.9
[2021-08-14 13:12] VITALS: BP 111/74
== END 2021-08-14 13:10 | disposition home or self-care (01) | DRG 872 ==
LOC: ERS 02:20 → T4-B 08:30 → OBSVTOIN 08-12 09:37
PROVIDERS: ADMIT Internal Medicine; ATTEND Internal Medicine
PROC: 0T9B70Z Drainage of Bladder with Drainage Device, Via Natural or Artificial Opening (ICD-10-PCS; principal; 2021-08-11)
PROC: 3E03329 Introduction of Other Anti-infective into Peripheral Vein, Percutaneous Approach (ICD-10-PCS; 2021-08-12)
DX: A41.52 Sepsis due to Pseudomonas (principal); N39.0 Urinary tract infection, site not specified; N40.1 Benign prostatic hyperplasia with lower urinary tract symptoms; R31.0 Gross hematuria; M79.89 Other specified soft tissue disorders; D53.9 Nutritional anemia, unspecified; R33.8 Other retention of urine; Z20.822 Contact with and (suspected) exposure to COVID-19; E66.9 Obesity, unspecified; I35.0 Nonrheumatic aortic (valve) stenosis; D69.59 Other secondary thrombocytopenia; I48.91 Unspecified atrial fibrillation; I10 Essential (primary) hypertension; E78.5 Hyperlipidemia, unspecified; Z79.899 Other long term (current) drug therapy; Z79.01 Long term (current) use of anticoagulants; Z98.890 Other specified postprocedural states; Z68.32 Body mass index [BMI] 32.0-32.9, adult
CPT/HCPCS: 36415; 51702; 71045; 80048; 80076; 81003; 81015; 83735; 85025; 85610; 87040; 87077; 87086; 87186; 93970; J0696; J2185; J3370; J3490; J7030; J7050; U0003; U0005

== ENCOUNTER 2021-09-03 09:03 | Outpatient (CLI) | payer MEDICARE, MEDICAID ==
[2021-09-03 10:32] LABS: Anion Gap 13 mmol/L (10-20); BUN (Urea Nitrogen) 16 mg/dL (8.4-25.7); Calc. Creatinine Clearance 0 mL/min (70-130); Calcium 8.7 mg/dL (7.8-10.44); Carbon Dioxide 26 mmol/L (23-31); Chloride 104 mmol/L (98-107); Glucose 106 mg/dL (83-110); Potassium 4.3 mmol/L (3.5-5.1); Sodium 139 mmol/L (136-145)
[2021-09-03 10:40] LABS: Hemoglobin 10.3 g/dL (13.5-17.5); Mean Corpuscular Volume 96.8 fl (81.2-95.1); Mean Platelet Volume 9.7 fl (7.4-10.4); Platelet Count 137 10x3/uL (150-450); RBC Distribution Width 15.8 % (11.5-14.5); Red Blood Cell (RBC) Count 3.43 10x6/uL (4.32-5.72); White Blood Cell (WBC) Count 6.1 10x3/uL (3.5-10.5)
[2021-09-03 21:24] LABS: SARS-CoV-2 PCR by NAA Not Detected (NotDetected)
== END 2021-09-03 09:04 | disposition home or self-care (01) ==
LOC: LABBT 09:03
PROVIDERS: ATTEND Urology
DX: Z01.818 Encounter for other preprocedural examination (principal); N40.1 Benign prostatic hyperplasia with lower urinary tract symptoms; Z20.822 Contact with and (suspected) exposure to COVID-19
CPT/HCPCS: 80048; 85027; 93005; U0003; U0005; 93010